=== PATIENT | female | born 1985 | race Caucasian/White ===

== ENCOUNTER 2022-02-09 02:22 | Emergency (ER) | payer SELFPAY ==
[~2022-02-09] VITALS: Ht 157.5 cm; Wt 47.6 kg
--- NOTE | 2022-02-09 02:50 | NUR ---
BIBFAMILY. TOOK 7 UNISOM PILLS. C/O SHAKINESS, TNGLING, NAUSEA & BODY FEELS UNCOMFORTABLE. DENIES SUICIDAL. PT A/OX4.. PT TOLERATING R/A WELL WITH NO RESP DISTRESS. AMBULATORY WITH STEADY GAIT. SAFETY MEASURES IN PLACE.
[2022-02-09] MEDS ORDERED: ONDANSETRON 4 MG TAB.RAPDIS ONE (03:22)
[2022-02-09] MEDS ORDERED: LORAZEPAM 1 MG TABLET ONE (03:22)
--- NOTE | 2022-02-09 03:24 | NUR ---
EMT AT PT'S BEDSIDE FOR EKG
[2022-02-09] MEDS ORDERED: ONDANSETRON 4 MG TAB.RAPDIS SL ONE (03:30)
[2022-02-09] MEDS ORDERED: LORAZEPAM 1 MG TABLET PO ONE (03:30)
--- NOTE | 2022-02-09 05:05 | NUR ---
Patient discharged to home in stable condition. Written and verbal after care instructions given. Patient verbalizes understanding of instruction.
[2022-02-09 05:09] VITALS: BP 132/87
== END 2022-02-09 05:09 | disposition home or self-care (01) ==
LOC: ER 02:35
DX: T45.0X1A Poisoning by antiallergic and antiemetic drugs, accidental (unintentional), initial encounter (principal); F41.9 Anxiety disorder, unspecified; R94.31 Abnormal electrocardiogram [ECG] [EKG]; G47.00 Insomnia, unspecified; Z88.0 Allergy status to penicillin; Y92.89 Other specified places as the place of occurrence of the external cause
CPT/HCPCS: 99283; 93005; Q0162